=== PATIENT | female | born 1970 | race Asian ===

== ENCOUNTER 2020-07-11 07:45 | Outpatient (CLI) | payer OTHER ==
--- NOTE | 2020-07-11 08:39 | ULT ---
Pelvic ultrasound: 07/11/2020 COMPARISON: None HISTORY: Irregular menstrual cycles TECHNIQUE: Multiplanar grayscale sonographic imaging of the pelvis obtained with transabdominal and e ndovaginal imaging. The ovaries were assessed with Doppler interrogation including color flow and spectral analysis FINDINGS: The uterus measures approximately 9.9 x 4.7 x 5.0 cm. The endometrial stripe measures appro ximately 1.0 cm, within normal limits. No free pelvic fluid noted. No uterine mass identified. Blood flow could not be documented within either ovary, likely technical in nature as the ovaries do not appear enlarged and demonstrate a symmetric echogenicity. Right ovary measures approximately 4.1 x 2.5 x 3.1 cm and left ovary measures approximately 2.3 x 2.1 x 2.4 cm. There is a left ovarian cyst measuring 1.6 cm and there is a right ovarian cyst measuring 2.6 cm. IMPRESSION: Unremarkable appearance of the uterus. Bilateral ovarian cysts. Ovarian blood flow could not be documented, likely technical in nature.
== END 2020-07-11 07:46 | disposition home or self-care (01) ==
LOC: BICULT 07:45
PROVIDERS: ATTEND Family Medicine
DX: N92.1 Excessive and frequent menstruation with irregular cycle (principal); N83.202 Unspecified ovarian cyst, left side; N83.201 Unspecified ovarian cyst, right side; R79.89 Other specified abnormal findings of blood chemistry
CPT/HCPCS: 36415; 76856; 84439; 84443; 84480; 84481; 86376; 86800

== ENCOUNTER 2025-06-19 22:05 | Emergency (ER) | payer OTHER ==
[2025-06-19 22:33] LABS: #Basophils 0.09 10x3/uL (0.0-0.2); #Eosinophils 0.18 10x3/uL (0.0-0.7); #Monocytes 0.72 10x3/uL (0.11-0.59); #Neutrophils 4.69 10x3/uL (1.40-6.50); %Basophils 1.0 % (0.0-1.0); %Eosinophils 2.0 % (0.0-10.0); %Lymphocytes 35.2 % (21.0-51.0); %Monocytes 8.1 % (0.0-10.0); %Neutrophils 52.9 % (42.0-75.0); Hematocrit 39.4 % (36.0-47.0); Hemoglobin 12.7 g/dL (12.0-16.0); Mean Corpuscular Hemoglobin 28.5 pg (27.0-31.0); Mean Corpuscular Volume 88.5 fL (78.0-98.0); Platelet Count 298 10x3/uL (130-400); Red Blood Cell (RBC) Count 4.45 mill/uL (4.20-5.40); White Blood Cell (WBC) Count 8.87 10x3/uL (4.8-10.8)
[2025-06-19 22:48] LABS: ALT (SGPT) 29 U/L (Less than 34); AST (SGOT) 27 U/L (11-34); Albumin 4.5 g/dL (3.1-4.5); Alkaline Phosphatase 74 U/L (40-110); Anion Gap 16 mmol/L (10-20); BUN (Urea Nitrogen) 15 mg/dL (9.8-20.1); Bilirubin, Total 0.2 mg/dL (0.3-1.2); Calc. Creatinine Clearance 0 mL/min (70-130); Calcium 9.5 mg/dL (7.8-10.44); Carbon Dioxide 21 mmol/L (22-29); Chloride 105 mmol/L (98-107); Globulin 3.1 g/dL (2.4-3.5); Glucose 110 mg/dL (70-105); Potassium 3.8 mmol/L (3.5-5.1); Sodium 138 mmol/L (136-145)
== END 2025-06-20 00:15 | disposition home or self-care (01) ==
LOC: ERS 22:05
DX: R05.9 Cough, unspecified (principal); R07.9 Chest pain, unspecified
CPT/HCPCS: 36415; 71045; 80053; 84484; 85025; 93005